=== PATIENT | female | born 1970 | race African-American/Black ===

== ENCOUNTER 2018-11-19 15:47 | Emergency (ER) | payer OTHER, SELFPAY ==
[2018-11-19 17:31] LABS: Base Excess-Venous 6.2 mmol/L (0 (+/- 2.5)); Calcium, Ionized 1.12 mmol/L (1.12-1.32); Hemoglobin - Calc 12.9 g/dL (12.0-18.0); O2 Tension (PvO2) 61.1 mmHg (35.0-45.0); Potassium 4.4 mmol/L (3.4-4.7); T. Carbon Dioxide 32.3 mmol/L (1.0-85.0); pH (Venous) 7.456 (7.35-7.45)
[2018-11-19 17:34] LABS: Acetaminophen Less than 6.0 mcg/mL (10.0-30.0); Alcohol Less than 10 mg/dL (Less than 10); Salicylate Less than 8.0 mg/dL (15.0-30.0)
[2018-11-19 17:46] LABS: Hemoglobin 11.2 g/dL (12.0-16.0); Mean Corpuscular HGB CONC 32.9 g/dL (32.0-36.0); Mean Corpuscular Hemoglobin 22.7 pg (27.0-31.0); Mean Corpuscular Volume 69.1 fL (78.0-98.0); Mean Platelet Volume 5.7 fL (7.4-10.4); Platelet Count 357 thou/uL (130-400); RBC Distribution Width 16.9 % (11.5-14.5); Red Blood Cell (RBC) Count 4.91 mill/uL (4.20-5.40); White Blood Cell (WBC) Count 10.7 thou/uL (4.8-10.8)
[2018-11-19 17:59] LABS: #Basophils 0.1 thou/uL (0.0-0.2); #Eosinphils 0.2 thou/uL (0.0-0.7); #Lymphocytes 3.4 thou/uL (1.20-3.40); #Monocytes 0.7 thou/uL (0.11-0.59); #Neutrophils 6.4 thou/uL (1.40-6.50); %Basophils 0.6 % (0.0-1.0); %Eosinophils 1.5 % (0.0-10.0); %Lymphocytes 31.7 % (21.0-51.0); %Monocytes 6.6 % (0.0-10.0); %Neutrophils 59.7 % (42.0-75.0); MDiff Complete? YES; Microcytosis MARKED = >30 cells (100X) (0-5/hpf); Reflex for Review?? NO
[2018-11-19 18:13] LABS: ALT (SGPT) 14 U/L (8-55); AST (SGOT) 21 U/L (5-34); Albumin 3.9 g/dL (3.5-5.0); Alkaline Phosphatase 78 U/L (40-150); Anion Gap 15 mmol/L (10-20); BUN (Urea Nitrogen) 10 mg/dL (7.0-18.7); Bilirubin, Total 0.3 mg/dL (0.2-1.2); Calc. Creatinine Clearance 0 mL/min (70-130); Calcium 9.3 mg/dL (7.8-10.44); Carbon Dioxide 24 mmol/L (22-29); Chloride 102 mmol/L (98-107); Estimated GFR-MDRD Greater than 90; Globulin 4.3 g/dL (2.4-3.5); Glucose 122 mg/dL (70-105); Protein, Total 8.2 g/dL (6.0-8.3); Sodium 137 mmol/L (136-145)
--- NOTE | 2018-11-19 19:38 | RAD ---
AP PORTABLE CHEST: 11/19/2018 1646 HOURS FINDINGS: Mild cardiomegaly. Given the portable technique, there is probably no real congestion. No effusions or lobar infiltrates were seen. IMPRESSION: Cardiomegaly. POS: HOME
== END 2018-11-19 18:32 | disposition home or self-care (01) ==
LOC: BURERS 15:47
DX: G47.30 Sleep apnea, unspecified (principal); M54.5 Low back pain; G89.29 Other chronic pain; R53.1 Weakness; I10 Essential (primary) hypertension; E11.9 Type 2 diabetes mellitus without complications; F41.9 Anxiety disorder, unspecified; F32.9 Major depressive disorder, single episode, unspecified; F43.10 Post-traumatic stress disorder, unspecified; F20.9 Schizophrenia, unspecified; Z79.899 Other long term (current) drug therapy; Z79.84 Long term (current) use of oral hypoglycemic drugs
CPT/HCPCS: 71045; 80053; 80307; 82330; 82803; 83605; 83880; 84443; 84484; 85025; 85379; 93005

== ENCOUNTER 2024-03-30 21:39 | Emergency (ER) | payer OTHER, MEDICARE ==
[2024-03-30] MEDS ORDERED: Naproxen 500 MG TAB ONE (23:29)
== END 2024-03-30 23:50 | disposition home or self-care (01) ==
LOC: BURERS 21:39
DX: S16.1XXA Strain of muscle, fascia and tendon at neck level, initial encounter (principal); S76.011A Strain of muscle, fascia and tendon of right hip, initial encounter; I10 Essential (primary) hypertension; E11.9 Type 2 diabetes mellitus without complications; V89.2XXA Person injured in unspecified motor-vehicle accident, traffic, initial encounter; Y92.410 Unspecified street and highway as the place of occurrence of the external cause; Z79.84 Long term (current) use of oral hypoglycemic drugs; Z79.899 Other long term (current) drug therapy
CPT/HCPCS: 72125; 72170